=== PATIENT | female | born 2000 | race Hispanic/Latino ===

== ENCOUNTER 2019-03-12 09:27 | Outpatient (CLI) | payer OTHER ==
--- NOTE | 2019-03-12 14:49 | ULT ---
OB ULTRASOUND: HISTORY: Size and dates. FINDINGS: Real-time imaging of the pelvis shows single viable intrauterine in a cephalic presentation . The heart rate was 146 b.p.m. The placenta is posterior in location without evidence of pre via. Amniotic fluid appears slightly prominent. The amniotic fluid index is calculated at approxima tely 13.7. Review of anatomy shows no anomalies detected. measurements as follows: BPD 5.2 cm, 21 weeks 6 days Head circumference 20.1 cm, 22 weeks 1 day Abdominal circumference 17.8 cm, 22 weeks 4 days Femur length 3.9 cm, 22 weeks 3 days IMPRESSION: 1. Single viable intrauterine in a cephalic presentation overall measurements correspondin g to a gestational age of 22 weeks 1 day. Estimated date of delivery 07/15/2019. 2. Placenta which is posterior in location without evidence of previa. POS: [facility]
== END 2019-03-12 09:28 | disposition home or self-care (01) ==
LOC: NAV ULT 09:27
PROVIDERS: ATTEND Family Medicine
DX: Z34.02 Encounter for supervision of normal first pregnancy, second trimester (principal); Z3A.22 22 weeks gestation of pregnancy
CPT/HCPCS: 76805